=== PATIENT | male | born 1965 | race Caucasian/White ===

== ENCOUNTER 2020-08-09 23:32 | Inpatient (IN) ==
[2020-08-10 00:19] LABS: INR 1.1; PT Patient Result 12.5 SECS (10.5-12.0)
[2020-08-10 00:29] LABS: Albumin 3.7 G/DL (3.4-5.0); Bilirubin,Total 0.4 MG/DL (0.2-1.0); Calcium 8.9 MG/DL (8.5-10.1); Osmolality,Calculated 285.1 MOS/KG (273-304); Potassium 3.6 MMOL/L (3.5-5.1); Total Protein 6.9 G/DL (6.4-8.2)
[2020-08-10 00:53] LABS: Basophils # 0.1 10*3/uL (0.0-0.2); Basophils % 0.7 % (0.0-0.8); Eosinophils # 0.3 10*3/uL (0.0-0.87); Eosinophils % 1.9 % (0.00-10.9); Hematocrit 46.1 VOL% (42.0-52.0); Hemoglobin 15.3 GM/DL (14.0-18.0); Immature Granulocytes % 0.2 %; Immature Granulocytes Absolute 0.03 #; Lymphocytes # 6.7 10*3/uL (1.4-4.0); Lymphocytes % 50.8 % (21.2-54.2); Mean Corpuscular HGB Conc 33.2 GM/DL (32-36); Mean Corpuscular Volume 96.4 FL (87-102); Mean Platelet Volume 10.8 FL (9.6-12.0); Monocytes % 7.9 % (1.7-12.7); Neutrophils % 38.5 % (38.7-73.9); Platelet Count 117 T/CUMM (130-400); Red Blood Count 4.78 MC/CUMM (3.8-5.5); Red Cell Distribution Width 14.1 % (9.3-17.3); White Blood Count 13.2 T/CUMM (4-12)
[2020-08-10] MEDS ORDERED: ETOMIDATE 20 MG/10 ML VIAL IV ONE (01:03)
[2020-08-10] MEDS ORDERED: ROCURONIUM 100 MG/10 ML VIAL IV ONE (01:03)
[2020-08-10 01:17] LABS: Eosinophils 5 % (0-10); Lymphocytes 50 % (20-55); Platelet Estimate Normal; Segmented Neutrophils 34 % (50-85); Total Cells Counted 100
[2020-08-10 02:47] LABS: ABG Base Excess -2.7 MMOL/L (-2.5-2.5); ABG HCO3 22.1 MMOL/L (20-26); ABG Oxygen Saturation 92.4 % (95-100); ABG PCO2 59.6 MM HG (35-48); ABG PH 7.255 (7.35-7.45); ABG PO2 74.5 MM HG (80-95); ABG TCO2 22.8 MMOL/L (23-27)
[2020-08-10] MEDS ORDERED: MAGNESIUM SULF RIDER 2 GM/50 ML PREMIX IV PRN (02:49)
[2020-08-10] MEDS ORDERED: POTASSIUM CHLORIDE RIDER 10 MEQ/100 ML PREMIX IV PRN ×3 (02:49→09:46)
[2020-08-10] MEDS ORDERED: ONDANSETRON 4 MG/2 ML VIAL IV PRN (02:49)
[2020-08-10] MEDS ORDERED: ALBUTEROL 2.5 MG/3 ML NEB RESP TX PRN (02:49)
[2020-08-10] MEDS ORDERED: MAGNESIUM SULF RIDER 4 GM/100 ML PREMIX IV PRN (02:49)
[2020-08-10] MEDS ORDERED: PANTOPRAZOLE 40 MG TABLET PO SCH (03:01)
[2020-08-10 03:02] LABS: Bacteria,Urine Occasional /HPF (Few); Bilirubin,Urine Negative (Negative); Blood, Urine Large mg/dL (Negative); Glucose,Urine (UA) >=500 mg/dL (Negative); Ketones,Urine Negative (Negative); Nitrite,Urine Negative (Negative); Protein,Urine 100 MG/DL; RBC,Urine 20 /HPF (0-4); Squamous Epithelial Cell,Urine Occasional /HPF (0-10); Urine Appearance Slightly Hazy (Clear); Urine Color Yellow (Yellow); Urine Specific Gravity 1.055 (1.001-1.035); Urine Urobilinogen < 2.0 EU/DL (0.2-1.0)
[2020-08-10] MEDS ORDERED: TICAGRELOR 90 MG TABLET PO ONE (03:08)
[2020-08-10 03:28] LABS: Barbiturates Screen,Urine Negative (Negative); Benzodiazepines Screen,Urine Negative (Negative); Cannabinoid Screen,Urine Positive (Negative); Opiate Screen,Urine Negative (Negative); Phencyclidine Screen,Urine Negative (Negative)
[2020-08-10] MEDS ORDERED: TICAGRELOR 90 MG TABLET PO SCH (03:30)
[2020-08-10] MEDS ORDERED: AMIODARONE 450 MG/9 ML VIAL IV ONE (04:53)
[2020-08-10] MEDS ORDERED: AMIODARONE 150 MG/3 ML VIAL ONE (04:53)
[2020-08-10] MEDS ORDERED: AMIODARONE INJ 150 MG in DEXTROSE 5% 100 ML IV ONE (04:55)
[2020-08-10] MEDS ORDERED: AMIODARONE INJ 450 MG in DEXTROSE 5% 241 ML IV SCH (05:00)
[2020-08-10] MEDS: carvediloL 3.125 MG TABLET PO SCH ×4 (05:03→21:31)
[2020-08-10] MEDS ORDERED: NOREPINEPHRINE 4 MG/4 ML VIAL IV ONE ×2 (05:13→08:53)
[2020-08-10] MEDS: NOREPINEPHRINE 8 MG in SODIUM CHLORIDE 0.9% 242 ML IV PRN ×5 (05:18→20:39)
[2020-08-10] MEDS ORDERED: DOBUTamine 500 MG/250 ML PREMIX IV PRN (05:20)
[2020-08-10 05:49] LABS: Basophils # 0.1 10*3/uL (0.0-0.2); Basophils % 0.2 % (0.0-0.8); Eosinophils % 0.1 % (0.00-10.9); Hematocrit 45.6 VOL% (42.0-52.0); Hemoglobin 14.7 GM/DL (14.0-18.0); Immature Granulocytes % 0.7 %; Immature Granulocytes Absolute 0.21 #; Lymphocytes # 2.9 10*3/uL (1.4-4.0); Lymphocytes % 10.1 % (21.2-54.2); Mean Corpuscular HGB Conc 32.2 GM/DL (32-36); Mean Corpuscular Volume 97.9 FL (87-102); Mean Platelet Volume 9.1 FL (9.6-12.0); Monocytes % 7.3 % (1.7-12.7); Neutrophils % 81.6 % (38.7-73.9); Platelet Count 338 T/CUMM (130-400); Red Blood Count 4.66 MC/CUMM (3.8-5.5); Red Cell Distribution Width 14.2 % (9.3-17.3); White Blood Count 28.4 T/CUMM (4-12)
[2020-08-10 06:12] LABS: Alanine Aminotransferase 219 U/L (16-61); Albumin 3.2 G/DL (3.4-5.0); Alkaline Phosphatase 105 U/L (45-117); Aspartate Amino Transferase 667 U/L (0-37); Blood Urea Nitrogen 13 MG/DL (7-18); Calcium 8.2 MG/DL (8.5-10.1); Carbon Dioxide 20 MMOL/L (21-32); Estimated Glom Filtration Rate 50 ML/MIN; Glucose 223 MG/DL (74-106); HDL Cholesterol 41 MG/DL (40-60); Potassium 3.4 MMOL/L (3.5-5.1); Risk Ratio 4.12; Sodium 136 MMOL/L (136-145); Triglycerides 87 MG/DL (2-150); VLDL CHOLESTEROL 17.4 MG/DL
[2020-08-10 06:32] LABS: Band Neutrophils 1 % (0-10); Eosinophils 1 % (0-10); Lymphocytes 12 % (20-55); Platelet Estimate Normal; Segmented Neutrophils 77 % (50-85); Total Cells Counted 100
[2020-08-10] MEDS: SODIUM CHLORIDE 0.9% 1,000 ML IV SCH (07:00)
[2020-08-10 07:12] LABS: CKMB % 6.3 %
[2020-08-10 07:32] LABS: High Sensitive Troponin I* > 125000 ng/L (0-78)
[2020-08-10] MEDS ORDERED: FUROSEMIDE 40 MG/4 ML VIAL IV ONE (07:54)
[2020-08-10 09:28] LABS: ABG Base Excess 2.9 MMOL/L (-2.5-2.5); ABG HCO3 25.7 MMOL/L (20-26); ABG Oxygen Saturation 99.4 % (95-100); ABG PCO2 34.4 MM HG (35-48); ABG PH 7.492 (7.35-7.45); ABG PO2 334.9 MM HG (80-95); ABG TCO2 26.8 MMOL/L (23-27); Allen Test Positive; Pt O2 Delivery Device Ventilator
[2020-08-10] MEDS: OMEPRAZOLE ODT 20 MG TABLET PO SCH (09:40)
[2020-08-10] MEDS: POTASSIUM CHLORIDE RIDER 20 MEQ/100 ML PREMIX IV PRN ×3 (10:00→13:10)
[2020-08-10] MEDS: AMIODARONE INJ 450 MG in DEXTROSE 5% 241 ML IV SCH (12:50)
[2020-08-10 12:52] LABS: Potassium 3.7 MMOL/L (3.5-5.1)
[2020-08-10 14:40] LABS: High Sensitive Troponin I* > 125000 ng/L (0-78)
[2020-08-10] MEDS: TICAGRELOR 90 MG TABLET PO SCH (21:31)
[2020-08-10 23:05] LABS: High Sensitive Troponin I* > 125000 ng/L (0-78)
[2020-08-10 23:16] LABS: CKMB % 1.1 %
[2020-08-11] MEDS: POTASSIUM CHLORIDE RIDER 20 MEQ/100 ML PREMIX IV PRN (00:35)
[2020-08-11] MEDS: NOREPINEPHRINE 8 MG in SODIUM CHLORIDE 0.9% 242 ML IV PRN ×5 (00:35→21:54)
[2020-08-11 04:05] LABS: ABG Base Excess 3.1 MMOL/L (-2.5-2.5); ABG HCO3 24.1 MMOL/L (20-26); ABG Oxygen Saturation 99.2 % (95-100); ABG PCO2 27.5 MM HG (35-48); ABG PH 7.561 (7.35-7.45); ABG PO2 246.2 MM HG (80-95)
[2020-08-11] MEDS: SODIUM CHLORIDE 0.9% 1,000 ML IV SCH (04:21)
[2020-08-11] MEDS: AMIODARONE INJ 450 MG in DEXTROSE 5% 241 ML IV SCH (04:21)
[2020-08-11] MEDS: carvediloL 3.125 MG TABLET PO SCH ×4 (04:26→20:40)
[2020-08-11 04:41] LABS: Basophils # 0.1 10*3/uL (0.0-0.2); Basophils % 0.3 % (0.0-0.8); Eosinophils % 0.2 % (0.00-10.9); Hematocrit 40.5 VOL% (42.0-52.0); Hemoglobin 13.7 GM/DL (14.0-18.0); Immature Granulocytes % 0.5 %; Lymphocytes # 2.2 10*3/uL (1.4-4.0); Lymphocytes % 11.6 % (21.2-54.2); Mean Corpuscular HGB Conc 33.8 GM/DL (32-36); Mean Corpuscular Volume 92.9 FL (87-102); Mean Platelet Volume 9.3 FL (9.6-12.0); Monocytes % 7.9 % (1.7-12.7); Neutrophils % 79.5 % (38.7-73.9); Platelet Count 275 T/CUMM (130-400); Red Blood Count 4.36 MC/CUMM (3.8-5.5); Red Cell Distribution Width 14.1 % (9.3-17.3)
[2020-08-11 04:55] LABS: INR 1.1; PT Patient Result 12.2 SECS (10.5-12.0)
[2020-08-11 05:16] LABS: Albumin 3.2 G/DL (3.4-5.0); Bilirubin,Total 0.7 MG/DL (0.2-1.0); Calcium 8.5 MG/DL (8.5-10.1); Osmolality,Calculated 285.1 MOS/KG (273-304); Total Protein 6.4 G/DL (6.4-8.2)
[2020-08-11 05:43] LABS: Albumin 3.2 G/DL (3.4-5.0); Bilirubin,Direct 0.16 MG/DL (0.0-0.20); Bilirubin,Indirect 0.5 MG/DL (0.0-1.0); Bilirubin,Total 0.7 MG/DL (0.2-1.0); Calcium 8.1 MG/DL (8.5-10.1); Potassium 4.2 MMOL/L (3.5-5.1); Total Protein 5.9 G/DL (6.4-8.2)
[2020-08-11] MEDS: TICAGRELOR 90 MG TABLET PO SCH ×2 (08:31→20:23)
[2020-08-11] MEDS: ASPIRIN EC 81 MG TABLET PO SCH (08:31)
[2020-08-11] MEDS: OMEPRAZOLE ODT 20 MG TABLET PO SCH (08:31)
[2020-08-11] MEDS: lisinopriL 2.5 MG TABLET PO SCH (16:25)
[2020-08-11] MEDS: SPIRONOLACTONE 25 MG TABLET PO SCH (16:25)
[2020-08-11] MEDS: AMIODARONE 200 MG TABLET PO SCH (20:23)
[2020-08-12] MEDS: carvediloL 3.125 MG TABLET PO SCH ×4 (03:51→20:38)
[2020-08-12 05:10] LABS: Basophils # 0.1 10*3/uL (0.0-0.2); Basophils % 0.3 % (0.0-0.8); Eosinophils # 0.1 10*3/uL (0.0-0.87); Eosinophils % 0.3 % (0.00-10.9); Hematocrit 37.6 VOL% (42.0-52.0); Hemoglobin 12.5 GM/DL (14.0-18.0); Immature Granulocytes % 0.6 %; Immature Granulocytes Absolute 0.11 #; Lymphocytes # 1.2 10*3/uL (1.4-4.0); Lymphocytes % 6.3 % (21.2-54.2); Mean Corpuscular HGB Conc 33.2 GM/DL (32-36); Mean Corpuscular Volume 95.7 FL (87-102); Mean Platelet Volume 9.8 FL (9.6-12.0); Monocytes % 7.6 % (1.7-12.7); Neutrophils % 84.9 % (38.7-73.9); Platelet Count 240 T/CUMM (130-400); Red Blood Count 3.93 MC/CUMM (3.8-5.5); Red Cell Distribution Width 14.6 % (9.3-17.3); White Blood Count 19.3 T/CUMM (4-12)
[2020-08-12 05:33] LABS: Calcium 8.1 MG/DL (8.5-10.1); Osmolality,Calculated 282.3 MOS/KG (273-304); Potassium 4.4 MMOL/L (3.5-5.1)
[2020-08-12 05:44] LABS: Bilirubin,Direct 0.16 MG/DL (0.0-0.20); Bilirubin,Indirect 0.5 MG/DL (0.0-1.0); Bilirubin,Total 0.7 MG/DL (0.2-1.0); Thyroid Stimulating Hormone 1.37 uIU/ml (0.358-3.74); Total Protein 5.6 G/DL (6.4-8.2)
[2020-08-12] MEDS ORDERED: DEXMEDETOMIDINE 200 MCG in SODIUM CHLORIDE 0.9% 48 ML IV PRN (07:18)
[2020-08-12] MEDS: NOREPINEPHRINE 8 MG in SODIUM CHLORIDE 0.9% 242 ML IV PRN (07:19)
[2020-08-12] MEDS: AMIODARONE 200 MG TABLET PO SCH ×2 (08:27→20:38)
[2020-08-12] MEDS: OMEPRAZOLE ODT 20 MG TABLET PO SCH (08:27)
[2020-08-12] MEDS: SPIRONOLACTONE 25 MG TABLET PO SCH (08:27)
[2020-08-12] MEDS: ACETAMINOPHEN 325 MG TABLET PO PRN (08:27)
[2020-08-12] MEDS: TICAGRELOR 90 MG TABLET PO SCH ×2 (08:27→20:38)
[2020-08-12] MEDS: ASPIRIN EC 81 MG TABLET PO SCH (08:27)
[2020-08-12] MEDS: lisinopriL 2.5 MG TABLET PO SCH (08:27)
[2020-08-12] MEDS ORDERED: LOPERAMIDE 1 MG/7.5 ML 30 ML BOTTLE PO PRN (14:58)
[2020-08-12] MEDS: SODIUM CHLORIDE 0.9% 1,000 ML IV SCH (18:51)
[2020-08-13] MEDS: carvediloL 3.125 MG TABLET PO SCH ×3 (04:04→20:14)
[2020-08-13 05:10] LABS: Basophils # 0.1 10*3/uL (0.0-0.2); Basophils % 0.4 % (0.0-0.8); Eosinophils # 0.1 10*3/uL (0.0-0.87); Eosinophils % 0.5 % (0.00-10.9); Hematocrit 34.2 VOL% (42.0-52.0); Hemoglobin 11.4 GM/DL (14.0-18.0); Immature Granulocytes % 0.6 %; Immature Granulocytes Absolute 0.09 #; Lymphocytes # 1.3 10*3/uL (1.4-4.0); Lymphocytes % 7.9 % (21.2-54.2); Mean Corpuscular HGB Conc 33.3 GM/DL (32-36); Mean Corpuscular Volume 95.8 FL (87-102); Mean Platelet Volume 10.1 FL (9.6-12.0); Monocytes % 6.1 % (1.7-12.7); Neutrophils % 84.5 % (38.7-73.9); Platelet Count 193 T/CUMM (130-400); Red Blood Count 3.57 MC/CUMM (3.8-5.5); Red Cell Distribution Width 13.7 % (9.3-17.3)
[2020-08-13 05:58] LABS: Bilirubin,Direct 0.35 MG/DL (0.0-0.20); Bilirubin,Indirect 1.3 MG/DL (0.0-1.0); Bilirubin,Total 1.6 MG/DL (0.2-1.0); Calcium 8.6 MG/DL (8.5-10.1); Osmolality,Calculated 276.7 MOS/KG (273-304); Potassium 3.3 MMOL/L (3.5-5.1); Total Protein 6.9 G/DL (6.4-8.2)
[2020-08-13] MEDS: ASPIRIN EC 81 MG TABLET PO SCH (09:01)
[2020-08-13] MEDS: SPIRONOLACTONE 25 MG TABLET PO SCH (09:02)
[2020-08-13] MEDS: TICAGRELOR 90 MG TABLET PO SCH ×2 (09:02→20:14)
[2020-08-13] MEDS: OMEPRAZOLE ODT 20 MG TABLET PO SCH (09:02)
[2020-08-13] MEDS: AMIODARONE 200 MG TABLET PO SCH ×2 (09:02→20:14)
[2020-08-13] MEDS: lisinopriL 2.5 MG TABLET PO SCH (09:07)
[2020-08-13] MEDS: ACETAMINOPHEN 325 MG TABLET PO PRN (23:58)
[2020-08-14 05:40] LABS: Basophils # 0.1 10*3/uL (0.0-0.2); Basophils % 0.3 % (0.0-0.8); Eosinophils # 0.1 10*3/uL (0.0-0.87); Eosinophils % 0.6 % (0.00-10.9); Hematocrit 33.5 VOL% (42.0-52.0); Hemoglobin 11.5 GM/DL (14.0-18.0); Immature Granulocytes % 0.8 %; Immature Granulocytes Absolute 0.12 #; Lymphocytes # 1.4 10*3/uL (1.4-4.0); Lymphocytes % 9.5 % (21.2-54.2); Mean Corpuscular HGB Conc 34.3 GM/DL (32-36); Mean Corpuscular Volume 93.1 FL (87-102); Mean Platelet Volume 10.4 FL (9.6-12.0); Monocytes % 9.9 % (1.7-12.7); Neutrophils % 78.9 % (38.7-73.9); Platelet Count 199 T/CUMM (130-400); Red Cell Distribution Width 13.5 % (9.3-17.3); White Blood Count 15.1 T/CUMM (4-12)
[2020-08-14 05:52] LABS: Osmolality,Calculated 277.5 MOS/KG (273-304); Potassium 3.3 MMOL/L (3.5-5.1)
[2020-08-14] MEDS: SPIRONOLACTONE 25 MG TABLET PO SCH (08:54)
[2020-08-14] MEDS: ASPIRIN EC 81 MG TABLET PO SCH (08:55)
[2020-08-14] MEDS: carvediloL 3.125 MG TABLET PO SCH ×2 (08:55→18:29)
[2020-08-14] MEDS: TICAGRELOR 90 MG TABLET PO SCH ×2 (08:55→18:29)
[2020-08-14] MEDS: OMEPRAZOLE ODT 20 MG TABLET PO SCH (08:55)
[2020-08-14] MEDS: lisinopriL 2.5 MG TABLET PO SCH (08:57)
[2020-08-14] MEDS: AMIODARONE 200 MG TABLET PO SCH ×2 (08:57→18:29)
[2020-08-14] MEDS ORDERED: POTASSIUM CHLORIDE 20 MEQ TABLET PO ONE (10:21)
[2020-08-14 17:23] VITALS: BP 119/78
[2020-08-14] MEDS ORDERED: levETIRAcetam 500 MG TABLET PO SCH ×2 (18:23→21:00)
== END 2020-08-14 18:57 | disposition home or self-care (01) | DRG 246 ==
LOC: N.ICU 08-10 04:37 → N.TELEN 08-12 18:00
PROVIDERS: ADMIT Internal Medicine Cardiovascular Disease; ATTEND Internal Medicine Cardiovascular Disease